=== PATIENT | female | born 1935 | race Caucasian/White ===

== ENCOUNTER 2016-06-02 21:14 | Emergency (ER) | payer MEDICARE ==
[2016-06-02 21:24] VITALS: TEMP 97.5; BMI 33.3
--- NOTE | 2016-06-02 21:54 | DIRPT ---
CLINICAL DATA: 80-year-old female with weakness EXAM: PORTABLE CHEST 1 VIEW COMPARISON: Radiograph dated 04/14/2013 FINDINGS: Single-view of the chest demonstrates emphysematous changes of the lungs. No focal consolidation, pleural effusion, or pneumothorax. Stable cardiac silhouette. No acute osseous pathology. IMPRESSION: No active disease. Electronically Signed By: Vitaliy Madsen M.D. On: 06/02/2016 21:51
[2016-06-02 22:01] LABS: AUTOMATED BASOPHIL 0.7 % (0-2); AUTOMATED EOSINOPHIL 3.5 % (0-5); AUTOMATED LYMPH 31.3 % (17-44); AUTOMATED NEUTROPHIL 53.5 % (45-76); MPV 8.4 fL (7.4-10.4)
[2016-06-02 22:11] LABS: BLOOD UREA NITROGEN 34 MG/DL (7-17); CALCIUM 10.3 MG/DL (8.4-10.2); CALCULATED OSMOLALITY 274 MOs/Kg (270-290); CHLORIDE 101 mEq/L (98-107); GLUCOSE 106 mg/dL (70-99); SODIUM LEVEL 138 mEq/L (137-146); TOTAL PROTEIN 7.4 G/DL (6.3-8.2)
[2016-06-02 22:23] LABS: PARTIAL THROMB. TIME 23.4 SEC (22-35)
--- NOTE | 2016-06-02 22:35 | EDPRACDOC ---
- General Information Chief Complaint: Generalized Weakness Stated Complaint: DIZZY Time Seen by Provider: 06/02/16 21:32 Information Source: Patient Home Medications: Home Medications Labetalol HCl [Trandate] 300 mg PO BID 04/24/12 Lisinopril [Prinivil] 40 mg PO DAILY 04/24/12 Amlodipine Besylate 10 mg PO DAILY 07/12/12 Atorvastatin Calcium [Lipitor] 40 mg PO DAILY 08/05/12 Ca Citrate/Mgox/Vit D3/B6/Min [Citracal Plus Tablet (300mg/200IU)] 2 tab PO BID 05/29/15 Cholecalciferol (Vitamin D3) [Vitamin D3] 2,000 unit PO DAILY 05/29/15 Fish Oil/Dha/Epa [Fish Oil 1,200 mg Fish Oil] 1 each PO DAILY 05/29/15 Focus Select Retina 1 tab PO DAILY 05/29/15 Garlic 1,000 mg PO DAILY 05/29/15 Ubidecarenone [Co Q-10] 200 mg PO DAILY 05/29/15 MetFORMIN (Immediate Release) [GLUCOPHAGE Immed Release] 1,000 mg PO QAM MetFORMIN (Immediate Release) [GLUCOPHAGE Immed Release] 500 mg PO HS 06/13/15 Aspirin/Calcium Carbonate/Mag [Aspirin Buffered 325 mg Tab] 325 mg PO BID #30 tablet 06/15/15 Clonazepam 0.5 mg PO BID PRN #30 tablet 06/15/15 Docusate Sodium [Colace] 100 mg PO HS #100 cap 06/15/15 Oxycodone Immediate Release [Oxycodone Immediate Release (OxyIR)] 2.5 mg PO Q4HWA PRN #30 tablet 06/15/15 Lorazepam [Ativan] 0.5 mg PO TID PRN #20 tab 06/02/16 Allergies/Adverse Reactions: Allergies Allergy/AdvReac Type Severity Reaction Status Date / Time No Known Allergies Allergy Verified 06/13/15 07:13 - History of Present 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 Exact Onset of Symptoms: Unknown Symptoms Started: Reports: Gradually, At Rest, With light exertion Symptoms Description: Other (INTERMITTENT) Weakness: Bilateral: Generalized Symptoms: Reports: Vertigo (ROOM SPINNING - OCCURRED X2, LASTED 30-40 BEFORE RESOLVING) Relevant History of: Denies: O, Anemia, CVA, DM, Electrolyte disorder, GI Bleed , ND, TIA Associated signs and symptoms:: Reports: None ED Past Medical History - History Reviewed Yes Nurses notes reviewed and agree except as marked - Patient Medical History Cardiac History: Reports: Hypertension, Hypercholesterolemia, Valvular Heart Disease GI/ History: Reports: Gastroesophageal Reflux, Diverticulosis Musculoskeletal History: Reports: Arthritis (back, knees) Psychological History: Reports: Anxiety. Denies: Depression Systemic History: Reports: Anemia (AFTER LEFT KNEE SURGERY), Diabetes (NIDDM). Denies: Cancer Surgical History: Reports: Tonsillectomy/Adnoidectomy (CHILDHOOD), Other (back, r tkr) - Family Medical History Reports: Hypertension (sister, mom), Diabetes (mom, sister), Cancer (sister- colon cancer), Cardiac Disorders (mom). Denies: Stroke - Social Medical History Smoking Status: Never smoker EDM Review of Systems - Review of Systems ROS Negative Except as Marked: Yes All systems reviewed and were negative except as marked - Physical Exam Constitutional: Alert (Awake), No apparent distress Oriented to: Time, Person, Place Last recorded Vital Signs: Last Vital Signs Temp 97.5 F 06/02/16 21:16 Pulse 82 06/02/16 21:16 Resp 20 06/02/16 21:16 BP 135/69 06/02/16 21:16 Pulse Ox 95 06/02/16 21:16 Oxygen Pulse Oxygen Saturation 95 O2 Device Room Air Oxygen Flow Rate Fraction of Inspired Oxygen ( FIO2) - HEENT Head: Normal ( normocephalic) Eye Exam: Normal (PERRL, EOMI, Sclera white) Oropharynx: Normal (Pharynx:Moist without exudate,Gums-no swelling) Tympanic Membrane: Normal ENT EAC: Normal TMJ: Normal Nose: No Symptoms Reported (septum midline) Neck: Normal (FROM, trachea at midline) - Respiratory/Cardiovascular Respiratory: Normal - CTA (BBS clear to auscultation without adventitious sounds ) Cardiovascular: Normal (RRR without murmur, gallop or rub) - GI Auscultation: Normal (NABS) Palpation: Normal (Soft,No rebound or guarding, non distended) Tenderness: Non tender Turpin's Sign: Negative - Musculoskeletal Back: Normal (Non-Tender) Extremities: Normal (Normal tone, Pulses 2+ No cyanosis or edema, FROM) - Integumentary Skin: Normal, Warm, Dry Lymphatics: Normal (no adenopathy) - Neurologic Memory Impaired: Normal Motor Function: Normal (Normal tone, Pulses 2+ No cyanosis or edema, FROM) Cranial Nerve: Normal (CN II-X11 intact sensation, strength 5/5) Cerebellar: Normal Mood Description: Normal Perception: Normal NIH Stroke Scale Re-evaluation 1 Level of Consciousness: Alert LOC- Question: Answers Both Correctly LOC Commands: Both Task Correctly Best Gaze: Normal Visual: No Visual Loss Facial Palsy: Normal Movement Motor Arm LEFT: No Drift Motor Arm RIGHT: No Drift Motor Leg LEFT: No Drift Motor Leg RIGHT: No Drift Limb Ataxia: Absent Sensory: Normal Best Language: No Aphasia Dysarthria: Normal Extinction and Inattention: No Abnormality (Neglect) Score: 0out of42 - Neurologic Orientation: Time Speech: Fluent Coginitive: Normal Affect: Normal Thought: Coherent Perception: Normal - Coordination Finger to Nose Test: Normal Performance Alternate Nose to Finger Test: Normal Performance Heel on Dolan Test: Normal Performance - Gait Standing Equilibrium Reactions: Within Normal Limits Left - Results 06/02/16 21:45 06/02/16 21:45 WBC 6.2 xk/uL (3.8-10.8) 06/02/16 21:45 RBC 4.31 xM/uL (4.20-5.40) 06/02/16 21:45 Hgb 12.6 g/dL (12.0-16.0) 06/02/16 21:45 Hct 37.7 % (36-47) 06/02/16 21:45 MCV 88 fL (81-99) 06/02/16 21:45 MCH 29.2 pg (27-32) 06/02/16 21:45 MCHC 33.4 g/dl (33-36) 06/02/16 21:45 RDW 14.9 % (11.5-14.5) H 06/02/16 21:45 Plt Count 173 xk/uL (130-400) 06/02/16 21:45 MPV 8.4 fL (7.4-10.4) 06/02/16 21:45 Neut % (Auto) 53.5 % (45-76) 06/02/16 21:45 Lymph % (Auto) 31.3 % (17-44) 06/02/16 21:45 [place] % (Auto) 11.0 % (3-10) H 06/02/16 21:45 Eos % (Auto) 3.5 % (0-5) 06/02/16 21:45 Baso % (Auto) 0.7 % (0-2) 06/02/16 21:45 Absolute Neuts (auto) 3.29 xk/uL (1.7-8.2) 06/02/16 21:45 Absolute Lymphs (auto) 1.92 xk/uL (0.65-4.75) 06/02/16 21:45 Sodium 138 mEq/L (137-146) 06/02/16 21:45 Potassium 4.5 mEq/L (3.5-5.1) 06/02/16 21:45 Chloride 101 mEq/L (98-107) 06/02/16 21:45 Carbon Dioxide 28 mMOL/L (22-33) 06/02/16 21:45 Anion Gap 14 mEq/L (8-16) 06/02/16 21:45 BUN 34 MG/DL (7-17) H 06/02/16 21:45 Creatinine 0.90 MG/DL (0.52-1.04) 06/02/16 21:45 Estimated GFR (MDRD) > 60 mL/min (>=60) 06/02/16 21:45 Glucose 106 mg/dL (70-99) H 06/02/16 21:45 Calculated Osmolality 274 MOs/Kg (270-290) 06/02/16 21:45 Calcium 10.3 MG/DL (8.4-10.2) H 06/02/16 21:45 Total Bilirubin 0.3 MG/DL (0.2-1.3) 06/02/16 21:45 AST 29 IU/L (14-36) 06/02/16 21:45 ALT 40 IU/L (9-52) 06/02/16 21:45 Alkaline Phosphatase 160 IU/L (55-165) 06/02/16 21:45 Troponin I < 0.01 ng/mL (<.04) 06/02/16 21:45 Tme-T-[id number] Pept 153 pg/mL (0-1800) 06/02/16 21:45 Total Protein 7.4 G/DL (6.3-8.2) 06/02/16 21:45 Albumin 4.4 G/DL (3.5-5.0) 06/02/16 21:45 Lab Results 06/02/16 06/02/16 21:45 21:45 WBC 6.2 RBC 4.31 Hgb 12.6 Hct 37.7 MCV 88 MCH 29.2 MCHC 33.4 RDW 14.9 H Plt Count 173 MPV 8.4 Neut % (Auto) 53.5 Lymph % (Auto) 31.3 [place] % (Auto) 11.0 H Eos % (Auto) 3.5 Baso % (Auto) 0.7 Absolute Neuts (auto) 3.29 Absolute Lymphs (auto) 1.92 Sodium 138 Potassium 4.5 Chloride 101 Carbon Dioxide 28 Anion Gap 14 BUN 34 H Creatinine 0.90 Estimated GFR (MDRD) > 60 Glucose 106 H Calculated Osmolality 274 Calcium 10.3 H Total Bilirubin 0.3 AST 29 ALT 40 Alkaline Phosphatase 160 Troponin I < 0.01 Hlx-W-Ooqinnmgbul Pept 153 Total Protein 7.4 Albumin 4.4 - EKG EKG #1 EKG Time: 21:45 -: Yes EKG interpreted by me Rate: bpm: 75 [place]: Normal Rhythm: NSR Block: None Hypertrophy: None ST: Normal - Diagnostic Imaging Chest Image interpreted by: Radiologist Patient Name: ELIZA GOMEZ LOC: ED : 1935 AGE: 80 Order Date:06/02/16 Date of Service:09/11 Report # [id number] Ord Physician: Yasmine Garrett MD Exam # [id number] Emergency Physician: Yasmine Garrett MD Exam(s): [id number] RAD/DG CHEST PORTABLE CLINICAL DATA: 80-year-old female with weakness EXAM: PORTABLE CHEST 1 VIEW COMPARISON: Radiograph dated 04/14/2013 FINDINGS: Single-view of the chest demonstrates emphysematous changes of the lungs. No focal consolidation, pleural effusion, or pneumothorax. Stable cardiac silhouette. No acute osseous pathology. IMPRESSION: No active disease. Electronically Signed By: Vitaliy Madsen M.D. On: 06/02/2016 21:51 Electronically Signed By: Vitaliy Madsen MD Electronically Signed Date/Time: [id number] Dictate Date/Time: 06/02/162150 Technologist: Kenyetta Gotti Transcribed By: Radha Transcribed Date/Time: 06/02/162150 - Departure Disposition: Home Condition: Good Final Diagnosis: Peripheral vertigo Qualifiers: Laterality: unspecified laterality Qualified Code(s): H81.399 - Other peripheral vertigo, unspecified ear Instructions: Weakness (ED), Benign Paroxysmal Positional Vertigo (ED) Education/Counseling Given To: Patient, Family Member Education/Counseling Given Regarding: Diagnosis, Treatment, Prognosis Referrals: Jeremiah Mark MD [Primary Care Provider] - One Week Prescriptions: New Lorazepam [Ativan] 0.5 mg PO TID PRN #20 tab PRN Reason: Vertigo No Action Labetalol HCl [Trandate] 300 mg PO BID Lisinopril [Prinivil] 40 mg PO DAILY Amlodipine Besylate 10 mg PO DAILY Atorvastatin Calcium [Lipitor] 40 mg PO DAILY Ubidecarenone [Co Q-10] 200 mg PO DAILY Fish Oil/Dha/Epa [Fish Oil 1,200 mg Fish Oil] 1 each PO DAILY Garlic 1,000 mg PO DAILY Cholecalciferol (Vitamin D3) [Vitamin D3] 2,000 unit PO DAILY Ca Citrate/Mgox/Vit D3/B6/Min [Citracal Plus Tablet (300mg/200IU)] 2 tab PO BID Focus Select Retina 1 tab PO DAILY MetFORMIN (Immediate Release) [GLUCOPHAGE Immed Release] 500 mg PO HS MetFORMIN (Immediate Release) [GLUCOPHAGE Immed Release] 1,000 mg PO QAM Oxycodone Immediate Release [Oxycodone Immediate Release (OxyIR)] 2.5 mg PO Q4HWA PRN #30 tablet PRN Reason: Pain Aspirin/Calcium Carbonate/Mag [Aspirin Buffered 325 mg Tab] 325 mg PO BID # 30 tablet Docusate Sodium [Colace] 100 mg PO HS #100 cap Clonazepam 0.5 mg PO BID PRN #30 tablet PRN Reason: Anxiety
[2016-06-02 23:11] LABS: LEUKOCYTES/URINE NEG (NEGATIVE); NITRITE/URINE NEG (NEGATIVE); URINE OCCULT BLOOD NEG (NEG/TRACE); WBC/URINE 0-2 (0-5)
[2016-06-02 23:37] VITALS: BP 119/68; PULSE 68
[2016-06-02] MEDS ORDERED: Lidocaine 2%-Epinephrine 1:100,000 20ml vial INF ONE (23:51)
== END 2016-06-02 23:35 | disposition home or self-care (01) ==
LOC: ED 21:14
DX: H81.399 Other peripheral vertigo, unspecified ear (principal)
CPT/HCPCS: 10060; 36415; 71010; 80053; 81001; 83880; 84484; 85025; 85610; 85730; 93005; 99283; J3490